=== PATIENT | female | born 1960 | race Two or more races ===

== ENCOUNTER 2021-04-29 13:05 | Outpatient (CLI) | payer MEDICARE, OTHER | END 2021-04-29 23:59 | disposition home or self-care (01) | LOC: MSC 13:05 | PROVIDERS: ATTEND Internal Medicine | DX: E11.22 Type 2 diabetes mellitus with diabetic chronic kidney disease (principal); I12.9 Hypertensive chronic kidney disease with stage 1 through stage 4 chronic kidney disease, or unspecified chronic kidney disease; N18.32 Chronic kidney disease, stage 3b; Z79.84 Long term (current) use of oral hypoglycemic drugs; E78.5 Hyperlipidemia, unspecified; J30.2 Other seasonal allergic rhinitis; I73.00 Raynaud's syndrome without gangrene; M10.9 Gout, unspecified; K58.9 Irritable bowel syndrome, unspecified; M43.20 Fusion of spine, site unspecified ==